=== PATIENT | male | born 1985 | race Hispanic/Latino ===

== ENCOUNTER 2019-08-14 20:21 | Emergency (ER) | payer OTHER ==
[2019-08-14] MEDS ORDERED: Oseltamivir 75 MG CAP ONE (20:49)
[2019-08-14] MEDS ORDERED: Acetaminophen 500 MG TAB ONE (20:49)
[2019-08-14] MEDS ORDERED: Benzonatate 100 MG CAP ONE (20:49)
== END 2019-08-14 20:55 | disposition home or self-care (01) ==
LOC: BURERS 20:21
DX: J11.1 Influenza due to unidentified influenza virus with other respiratory manifestations (principal)
CPT/HCPCS: 99283